=== PATIENT | male | born 1945 ===

== ENCOUNTER → 2016-09-28 | Outpatient (CLI) | payer OTHER ==
--- NOTE | 2016-09-28 12:12 | CT ---
CT Right Lower Extremity With Attention to the Knee Indication: Pain. Preoperative evaluation for right total knee replacement. Technique: Spiral imaging was obtained through the right knee at 1.25-mm slice thickness along with s piral imaging through the right hip and right ankle at 2.5-mm slice thickness. Data was transmitted f or subsequent CARIN knee replacement. CT Dose reduction techniques utilized. Findings: Right Hip: Mild osteoarthritic changes are present. Right Knee: Moderate to severe osteoarthritic changes are present with significant joint space narrow ing, worse in the medial than lateral compartment. Moderate patellofemoral osteoarthritic changes are present. In the lateral posterior femur is a nonaggressive 9 x 10 x 17 mm cortically-based metaphyse al nonaggressive lesion. Right Ankle: Minimal arthritic changes for age. Incidental note of a moderate amount of calcified atherosclerotic disease. Impression: 1. Probably benign cortical metaphyseal nonaggressive appearing lesion measuring 9 x 10 x 17 mm. Diff erential would include an interosseous lipoma aneurysmal bone cyst or nonossifying fibroma. 2. Data was transmitted for CARIN knee replacement surgery. Moderate to severe osteoarthritic changes, worse in the medial compartment. I reviewed this exam with Dr. Mcpherson who agrees with the above
== END ==
LOC: FIMAGING 10:00
PROVIDERS: ATTEND Orthopaedic Surgery
DX: Z01.818 Encounter for other preprocedural examination (principal); M89.251 Other disorders of bone development and growth, right femur; M17.11 Unilateral primary osteoarthritis, right knee

== ENCOUNTER 2016-09-30 06:43 | Observation (INO) | payer OTHER ==
[2016-09-01 15:01] LABS: % IMMATURE GRANULYOCYTES 0.8 % (0.0-1.1); ABSOLUTE IMMATURE GRANULOCYTES 0.07 10^3/uL (0.00-0.10); ADD DIFF? NO; ADD MORPH? NO; ADD SCAN? NO; ATYPICAL LYMPHOCYTE FLAG 10 (0-99); FRAGMENT RBC FLAG 0 (0-99); HEMATOCRIT 46.4 % (40.0-51.0); HEMOGLOBIN 15.9 g/dL (13.7-17.5); LEFT SHIFT FLG 0 (0-99); LIPEMIA HEMOLYSIS FLAG 90 (0-99); MEAN CELL HEMOGLOBIN 32.3 pg (27.9-34.1); MEAN CELL HEMOGLOBIN CONCENTR. 34.3 g/dL (32.4-36.7); MEAN CELL VOLUME 94.1 fL (81.5-99.8); MEAN PLATELET VOLUME 10.9 fL (8.7-11.7); PLATELET CLUMPS FLAG 0 (0-99); PLATELET COUNT 198 10^3/uL (150-400); RED BLOOD CELL COUNT 4.93 10^6/uL (4.40-6.38); RED CELL DISTRIBUTION WIDTH 13.6 % (11.5-15.2)
[2016-09-30] MEDS ORDERED: CEFAZOLIN 2 GM/DEXTR 100 ML IV ONE (07:00)
[2016-09-30] MEDS ORDERED: CHLORHEXIDINE GLUC HIBICLENS 118 ML BTL TP ONE (07:00)
[2016-09-30] MEDS ORDERED: FAMOTIDINE 20 MG TAB PO ONE (07:00)
[2016-09-30] MEDS ORDERED: DEXAMETHASONE 4 MG/ML VIAL IVP ONE (07:00)
[2016-09-30] MEDS ORDERED: ACETAMINOPHEN 325 MG TAB PO ONE (07:00)
[2016-09-30] MEDS ORDERED: ROPI/epiNEPH/KETOROLAC JOINT COCKTAIL IU ONE (07:00)
[2016-09-30] MEDS ORDERED: TRANEXAMIC ACID 3,000 MG in NS 50 ML IRR ONE (07:00)
[2016-09-30] MEDS ORDERED: FAMOTIDINE 20 MG TAB ONE (07:16)
[2016-09-30] MEDS ORDERED: DEXAMETHASONE 4 MG/ML VIAL ONE (07:16)
[2016-09-30] MEDS ORDERED: ACETAMINOPHEN 325 MG TAB ONE (07:16)
[2016-09-30] MEDS ORDERED: CEFAZOLIN 2 GM/DEXTROSE/100 ML BAG IV ONE (07:16)
[2016-09-30] MEDS ORDERED: VANCOMYCIN 1 GM VIAL IV ONE (07:43)
[2016-09-30] MEDS ORDERED: SKIN ADHESIVE (DERMABOND) 1 EACH TP ONE (07:43)
[2016-09-30] MEDS ORDERED: TRANEXAMIC ACID 3,000 MG/50 ML BAG IRR ONE (07:43)
[2016-09-30] MEDS ORDERED: LIDOCAINE 1% 5 ML SDV ID PRN (08:18)
[2016-09-30] MEDS ORDERED: LR 1,000 ML IV ONE (08:18)
[2016-09-30] MEDS ORDERED: PROPOFOL/EMULSION 500 MG/50 ML BOTTLE IV ONE ×3 (08:51→09:58)
[2016-09-30] MEDS ORDERED: LIDOCAINE 2% 100 MG/5 ML SYR IVP ONE (08:52)
[2016-09-30] MEDS ORDERED: MIDAZOLAM 2 MG/2 ML VIAL ONE (08:52)
[2016-09-30] MEDS ORDERED: ROPIVACAINE HCL 150 MG/30 ML INJ ONE (09:32)
[2016-09-30] MEDS ORDERED: PROMETHAZINE HCL 25 MG/ML VIAL IVP PRN (10:36)
[2016-09-30] MEDS ORDERED: CYCLOBENZAPRINE 10 MG TAB PO PRN (10:36)
[2016-09-30] MEDS ORDERED: METOCLOPRAMIDE 10 MG/2 ML VIAL IVP PRN (10:36)
[2016-09-30] MEDS ORDERED: ONDANSETRON DISINTEGRATING 4 MG TAB PO PRN (10:36)
[2016-09-30] MEDS ORDERED: PROMETHAZINE HCL 25 MG SUPPR PR PRN (10:36)
[2016-09-30] MEDS ORDERED: diphenhydrAMINE 25 MG CAP PO PRN (10:36)
[2016-09-30] MEDS ORDERED: LACTULOSE 20 GM/30 ML UDCUP PO PRN (10:36)
[2016-09-30] MEDS ORDERED: ONDANSETRON 4 MG/2 ML VIAL IVP PRN (10:36)
[2016-09-30] MEDS ORDERED: DIPHENOXYLATE/ATROPINE LOMOTIL 1 TAB PO PRN (10:36)
[2016-09-30] MEDS ORDERED: TEMAZEPAM 15 MG CAP PO PRN (10:36)
[2016-09-30] MEDS ORDERED: PHARMACY PAIN CONSULT 1 EA MISC PRN (10:36)
[2016-09-30] MEDS ORDERED: BISACODYL 10 MG SUPP PR PRN (10:36)
[2016-09-30] MEDS ORDERED: MAGNESIUM HYDROXIDE 30 ML UDCUP PO PRN (10:36)
[2016-09-30] MEDS ORDERED: POLYETHYLENE GLYCOL 3350 17 GM PKT PO PRN (10:36)
--- NOTE | 2016-09-30 10:36 | POSTOPPROG ---
Post Op Note Date of Operation: 09/30/16 Surgeon: Jaime Springer Net Technical Architect: power springer Anesthesiologist: dr. haque Anesthesia: Spinal, Other (Specify) (adductor canal block) Pre-op Diagnosis: right knee OA Post-op Diagnosis: same Indication: right knee pain due to OA that failed conservative measures Procedure: right medial knee arthroplasty, robot assisted Findings: severe medial knee OA Inf/Abcess present in the surg proc area at time of surgery?: No EBL: 50-100
[2016-09-30] MEDS ORDERED: LR 1,000 ML IV SCH (11:00)
--- NOTE | 2016-09-30 11:40 | DX ---
Right knee, 2 views. HISTORY: Postop. FINDINGS: Surgical features of the medial compartment right knee hemiarthroplasty identified, without hardware complication. Associated soft tissue air. IMPRESSION: 1. Medial compartment right knee hemiarthroplasty without complication.
[2016-09-30] MEDS: ACETAMINOPHEN 325 MG TAB PO SCH ×2 (13:26→16:54)
[2016-09-30] MEDS: ceFAZolin 2 GM/DEXTROSE 100 ML IV SCH ×2 (13:53→20:29)
[2016-09-30] MEDS ORDERED: WARFARIN SODIUM 5 MG TAB PO SCH (16:00)
[2016-09-30] MEDS: oxyCODONE IR 5 MG TAB PO PRN ×2 (17:29→22:04)
--- NOTE | 2016-09-30 19:44 | GOP ---
[f rep st] OPERATIVE REPORT DATE OF OPERATION: 09/30/2016 SURGEON: Fausto Jones MD FINAL ASSEMBLY WORKER: Charity Jones PA-C. ANESTHESIA: Spinal. PREOPERATIVE DIAGNOSIS: Right knee osteoarthritis. POSTOPERATIVE DIAGNOSIS: Right knee osteoarthritis. PROCEDURE PERFORMED: Right medial compartment partial knee replacement with robotic assist. FINDINGS: severe medial OA INDICATIONS: This is a 71 year old male with progressive pain of the right knee unresponsive to conservative care. Risks and benefits of surgical intervention were explained in detail. DESCRIPTION OF PROCEDURE: The patient was brought to the operating room and placed on the table in supine position. Spinal anesthesia was induced without difficulty. A pneumatic tourniquet was applied about the right proximal thigh and the leg was prepped and draped in sterile fashion. Attention was turned first to the distal aspect of the right femur. At 3 cm proximal to the lateral rise of the femur, 2 percutaneous half pins were placed for fixation of the femoral array. In a similar fashion, 2 pins were placed anterolateral on the tibia for fixation of the tibial array. External land marking and registration of the hip center was performed without difficulty. After exsanguination by elevation, the tourniquet was inflated to 275 mmHg. Incision was made from the tibial tuberosity to the superior pole of the patella. Dissection was carried out through the subcutaneous tissue to the deep fascia using Bovie electrocautery for hemostasis. Medial parapatellar arthrotomy was carried out to the superior pole of the patella. The medial collateral ligament was elevated and the infrapatellar fat pad was resected. Internal femoral and tibial registration was carried out without difficulty and the femoral and tibial checkpoints were placed and verified for accuracy. Attention was turned to the femur. The foot print for the size 5 femoral component was cut with the 6 mm bur using the [employer] robotic system and verified for accuracy against the CT based plan. The hole was cut for the femoral post. In a similar fashion, the 6 mm bur was used to cut the foot print for the size 5 tibial component using the [employer] system and verified for accuracy against the CT based plan. Attention was turned to the posterior aspect of the knee and remnants of the medial meniscus were excised. The posterior capsule was injected with ropivacaine, epinephrine and Toradol. Trial reduction was carried out and there was excellent range of motion, alignment and stability using the size 5 femoral component and the size 5 tibial component. All trials were then removed. The joint was thoroughly irrigated and carefully dried. One package of cement and 1 gram of vancomycin were mixed in the vacuum mixer and placed on the fixation surfaces of all components. The components were implanted and all excess cement was thoroughly removed. Implant placement was verified against the CT view plan and found to be excellent. The tourniquet was deflated and all bleeders were coagulated. The wound was thoroughly irrigated and closed using interrupted sutures of 2-0 Vicryl for the joint capsule. The subcu was closed with 3-0 Vicryl and the skin with 4-0 Monocryl. Dermabond and Steri-Strips were applied, followed by a compressive dressing. The patient was then moved from the operating room to the recovery room in good condition, having tolerated the procedure well. PATHOLOGY: Severe medial compartment osteoarthritis. CASE CLASSIFICATION: Clean. /[id number]/MODL MTDD
[2016-09-30] MEDS: FAMOTIDINE 20 MG TAB PO SCH (20:30)
[2016-09-30] MEDS: SENNOSIDES/DOCUSATE SODIUM TAB PO SCH (20:30)
[2016-10-01] MEDS: ACETAMINOPHEN 325 MG TAB PO SCH ×2 (00:30→05:02)
[2016-10-01 04:29] VITALS: TEMP 97.7
[2016-10-01 05:33] LABS: HEMOGLOBIN 13.4 g/dL (13.7-17.5)
[2016-10-01 05:43] LABS: INR 1.15 (0.83-1.16); PROTIME(PATIENT) 14.7 SEC (12.0-15.0)
[2016-10-01 08:40] VITALS: BP 129/82; PULSE 53; RESP 15; O2SAT 93
[2016-10-01] MEDS ORDERED: ENOXAPARIN 40 MG/0.4 ML SYR SC SCH (09:00)
[2016-10-01] MEDS ORDERED: NON-FORMULARY NEW DRUG (Pravastatin Sodium [Pravachol] 80 MG) PO SCH (09:00)
[2016-10-01] MEDS ORDERED: METOPROLOL SUCCINATE XR 100 MG TAB PO SCH (09:00)
[2016-10-01] MEDS ORDERED: LISINOPRIL 20 MG TAB PO SCH (09:00)
[2016-10-01] MEDS ORDERED: PRAVASTATIN SODIUM 40 MG TAB PO SCH (09:00)
--- NOTE | 2016-10-01 09:15 | SOAPPROG ---
SOAP Progress Note Assessment/Plan: Assessment: Patient is doing well POD 1 s/p R med MPL 1.Pain management: pain is well controlled on oral pain meds 2.Anemia: level is expected initially postop. Asymptomatic. Cont to monitor for symptoms 3.VTE ppx: recommend coumadin 5mg daily and lovenox injections for the next 4 days. Cont MIUGEL weiner and SCD 4. d/c planning: d/c to home today pending release from PT. Plan: 10/01/16 09:14 Subjective: Emmanuel is doing well this morning, denies SOB, chest pain and N/V. pleased with pain level. Objective: Vital Signs Temp Pulse Resp BP Pulse Ox 36.5 C 53 L 15 129/82 H 93 10/01/16 04:28 10/01/16 08:37 10/01/16 08:37 10/01/16 08:37 10/01/16 08:37 Laboratory Results 10/01/16 04:50 09/30/16 10/01/16 10/02/16 05:59 05:59 05:59 Intake Total 3325 Output Total 500 Balance 2825 PT 14.7 SEC (12.0-15.0) 10/01/16 04:50 INR 1.15 (0.83-1.16) 10/01/16 04:50 RLE: incision dressing is clean and dry, NVI, +pf/df ICD10 Worksheet Patient Problems: Problems Problem Status Diagnosed Primary localized osteoarthritis of right knee Acute
[2016-10-01] MEDS: FAMOTIDINE 20 MG TAB PO SCH (09:17)
[2016-10-01] MEDS: SENNOSIDES/DOCUSATE SODIUM TAB PO SCH (09:17)
[2016-10-01] MEDS: oxyCODONE IR 5 MG TAB PO PRN (09:41)
--- NOTE | 2016-10-01 14:26 | GDS ---
[f rep st] DISCHARGE SUMMARY ADMISSION DIAGNOSIS: Right knee osteoarthritis. DISCHARGE DIAGNOSIS: Right knee osteoarthritis. PROCEDURE: Right partial knee arthroplasty, robot-assisted, medial compartment. VTE PROPHYLAXIS: Recommend Coumadin and Lovenox. BRIEF DESCRIPTION OF HOSPITAL STAY: Patient was admitted for an elective joint arthroplasty. The pa tieelenita tolerated the procedure well and has passed physical therapy. The patient was given appropriat e antibiotic prophylaxis and venous thromboembolism prophylaxis. The patient's pain was well control led on oral pain medication, patient was holding down food, and had urinated. Decision was made to d ischarge the patient. The patient was given postoperative prescriptions preoperatively. PLAN: To follow up with Dr. oJnes at [facility] in 2 to 3 weeks. /[id number]/MODL
== END 2016-10-01 12:07 | disposition home or self-care (01) ==
LOC: INTOOBSV 06:43 → F3E 06:43 → F3N 08:46
PROVIDERS: ADMIT Orthopaedic Surgery; ATTEND Orthopaedic Surgery
PROC: 0SUC0JZ Supplement Right Knee Joint with Synthetic Substitute, Open Approach (ICD-10-PCS; principal; 2016-09-30 09:15)
PROC: 8E0Y0CZ Robotic Assisted Procedure of Lower Extremity, Open Approach (ICD-10-PCS; principal; 2016-09-30 09:15)
DX: M17.11 Unilateral primary osteoarthritis, right knee (principal); I10 Essential (primary) hypertension; G47.33 Obstructive sleep apnea (adult) (pediatric)
CPT/HCPCS: 27446; 73560; 97110; 97116; 97161; 97165; C1713; C1776; G0378; G8978; G8979; G8980; G8987; G8988; G8989; J0171; J0690; J1100; J1650; J1885; J2001; J2250; J2704; J2795; J3370

== ENCOUNTER → 2016-12-21 | Outpatient (CLI) | payer OTHER | LOC: FCPNEURO 20:00 | PROVIDERS: ATTEND Psychiatry & Neurology Sleep Medicine | DX: G47.33 Obstructive sleep apnea (adult) (pediatric) (principal); G47.31 Primary central sleep apnea ==